=== PATIENT | female | born 1995 | race Caucasian/White ===

== ENCOUNTER 2023-01-01 13:10 | Emergency (ER) | payer BC ==
--- OUTSIDE RECORDS SUMMARY | 2023-01-01 13:13 | XMS REPORT | Continuity of Care Document ---
:1995 Author Organization [facility] t Address [address] [facility] [address] [place] [address] Care Team Providers Name Role Phone CAROLE ORDONEZ Primary Care Physician Unavailable SUE TORRES Attending Clinician Unavailable Sue Blank Attending Clinician Unknown, Attending Attending Clinician Unavailable Doctor Unassigned, [place] Attending Clinician Unavailable Lab, Adc Fam Pob I Attending Clinician Unavailable Pia Ferguson Attending Clinician Payers Payer Name Policy Type Policy Number Effective Expiration Source Date Date [facility] [id number] 2022 00:00:00 [facility] [id number] 2020 [id number] 00:00:[address] Branch Problems This patient has no known problems. Allergies, Adverse Reactions, Alerts Allergy Allergy Status Severity Reaction(s) Onset Inactive Treating Comm ents Source Name Type Date Date Clinician NO KNOWN Drug Active Univers ALLERGIE Class ity of [facility] Medical [place] Social History Social Habit Start Date Stop Date Quantity Comments Source Exposure to 2022-12-08 2022-12-18 Not sure [facility] SARS-CoV-2 (event) 00:00:00 18:49:00 Medica l Branch Sex Assigned At [birth year] [facility] [place] 00:00:00 00:00:00 Medical Branch Smoking Status Start Date Stop Date Source Tobacco smoking consumption Univ [facility] unknown Branch Medications Ordered Filled Start Stop Current Ordering Indication Dosage Frequency Signature Comments Components Source Medication Medication Date Date Medication? Clinician (SIG) Name Name levocetiriz Yes [id number] 5mg Take 1 Univers ine 5 mg 5-12 tablet by ity of tablet 00:00: mouth [place] 00 every Medical evening. Branch benzocaine- Yes [id number] 1{lozen Take 1 Univers menthoL 5-12 ge} Lozenge by ity of (CEPACOL 00:00: mouth [place] SORE 00 every 4 Medical THROAT, (four) Branch NIYAH-MEN,) hours as lozenge needed for Sore throat. dexAMETHaso 2022- Yes [id number] 12mg Take 3 Univers ne 4 mg 5-12 05-13 tablets by ity o f tablet 00:00: 04:59 [place] now for 1 Medical dose. Branch Vital Signs Vital Name Observation Time Observation Value Comments Source Systolic blood 2022-12-18 23:57:00 117 [facility] Diastolic blood 2022-12-18 23:57:00 76 mm[Hg] [facility] Heart rate 2022-12-18 23:57:00 101 /min [facility] Body temperature 2022-12-18 23:57:[address] [facility] Respiratory rate 2022-12-18 23:57:00 16 /min [facility] Body height 2022-12-18 23:57:00 160 cm [facility] Body weight 2022-12-18 23:57:00 69.673 kg [facility] BMI 2022-12-18 23:57:00 27.21 kg/m2 [facility] Oxygen saturation in 2022-12-18 23:57:00 99 /min [facility] Arterial blood by [facility] Pulse oximetry Branch Procedures Procedure Date / Time Performed Performing Clinician Sourtamara e POCT MOLECULAR STREP 2022-12-18 23:56:00 Unknown, Attending [facility] ASSIGNMENT OF BENEFITS 2022-12-18 23:50:01 Doctor Unassigned, No [facility] PATIENT FINANCIAL 2022-11-16 13:01:52 Doctor Unassigned, No [facility] Branch Encounters Start End Encounter Admission Attending Care Care Encounter Source Date/Time Date/Time Type Type Clinicians Facility Department ID 2022-12-18 2022-12-18 Outpatient R MEL[facility]SA [facility] [id number] Univers 18:40:00 20:10:11 SUE ity o f [facility] [place] [facility] 2022-12-18 2022-12-18 Urgent Sue Torres [facility] 1.2.840 .114 [id number] Univers 18:40:00 19:00:00 Care Unknown, Attending HEALTH [id number] ity of [place] [id number] Abdiaziz as YOUSUF?BLEA [id number] Fl dical JEANNEEY [address] MEDICAL OFFICE BUILDING 2022-12-18 2022-12-18 Orders Doctor NASIM [id number] Univers 00:00:00 00:00:00 Only Unassigned, PABLO [id number] ity of [place] [facility] [id number] Abdiaziz as [phone] [address] 2022-11-16 2022-11-16 Orders Doctor NASIM [id number] Univers 00:00:00 00:00:00 Only Unassigned, PABLO [id number] ity of [place] [facility] [id number] Abdiaziz as [phone] [address] 2020-02-27 2020-02-27 Laboratory Lab, Adc Fam Pob I [facility] 1.2. 840.114 [id number] Univers 08:20:00 08:40:00 Only Anene, [facility] [id number] ity of [place] [id number] Abdiaziz as Professio [phone] Fl dical nal [address] [place] [address] One Results Test Description Test Time Test Comments Results Result Comments Source POCT MOLECULAR STREP 2022-12-19 00:03:34 Test Item Value Reference Range Interpretation Comme nts POCT Molecular Strep (test code = 52757-4) Negative Negative Lab Interpretation (test code = 84656-9) Normal [facility]
[2023-01-01] MEDS ORDERED: dexAMETHasone 10 MG/ML VIAL ONE (13:41)
--- NOTE | 2023-01-01 14:05 | EDPHYS ---
Physician Documentation [facility] Name: Bianka Ferguson Age: 27 yrs Sex: Female : 1995 Arrival Date: 01/01/2023 Time: 13:10 Bed 13 Private MD: ED Physician Sly Mandujano HPI: 01/01 13:25 This 27 yrs old Female presents to ER via Ambulatory with complaints of Sore Throat, jmm Difficulty Swallowing. 13:25 The patient presents with sore throat. Onset: The symptoms/episode began/occurred jmm gradually. Is a 27-year-old female with no chronic medical conditions presents emerged part with complaints of sore throat, body aches beginning 2 days ago. Patient is concerned she may have strep throat. Denies vomiting. Denies shortness of breath.. 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 - Social history:: Smoking status: Patient denies any tobacco usage or history of. ROS: 13:25 Constitutional: Positive for body aches. jmm 13:25 ENT: Positive for sore throat. 13:25 All other systems are negative. Exam: 13:25 Constitutional: This is a well developed, well nourished patient who is awake, alert, jmm and in no acute distress. Head/Face: atraumatic. Eyes: EOMI, no conjunctival erythema appreciated 13:25 Neck: Trachea midline, Supple Chest/axilla: Normal chest wall appearance and motion. Cardiovascular: Regular rate and rhythm. No edema appreciated Respiratory: Normal respirations, no respiratory distress appreciated Abdomen/GI: Non distended Back: Normal ROM Skin: General appearance color normal MS/ Extremity: Moves all extremities, no obvious deformities appreciated, no edema noted to the lower extremities Neuro: Awake and alert Psych: Behavior is normal, Mood is normal, Patient is cooperative and pleasant 13:25 ENT: Posterior pharynx: erythema, that is moderate. Vital Signs: 13:22 BP 137 / 85; Pulse 92; Resp 16; Temp 98; Pulse Ox 100% ; bp 14:13 BP 128 / 74; Pulse 79; Resp 16; Pulse Ox 99% on R/A; mb9 MDM: 13:25 Patient medically screened. [facility] 14:14 Differential diagnosis: Strep pharyngitis, pharyngitis. [facility] 14:14 Data reviewed: vital signs, nurses notes. I considered the following discharge jm prescriptions or medication management in the emergency department Medications were administered in the Emergency Department. See MAR. Counseling: I had a detailed discussion with the patient and/or guardian regarding: the historical points, exam findings, and any diagnostic results supporting the discharge/admit diagnosis, lab results, the need for outpatient follow up, to return to the emergency department if symptoms worsen or persist or if there are any questions or concerns that arise at home. 01/01 13:25 Order name: Strep kylie Administered Medications: 13:37 Drug: Dexamethasone IM 10 mg Route: IM; Site: right gluteus; 9 13:54 Follow up: Response: No adverse reaction mb9 Disposition Summary: 01/01/23 14:04 Discharge Ordered Location: Home [facility] Condition: Stable [facility] Diagnosis - Acute pharyngitis, unspecified [facility] Followup: [facility] - With: Private Physician - When: 2 - 3 days - Reason: Recheck today's complaints, Continuance of care, Re-evaluation by your physician Discharge Instructions: - Pharyngitis [facility] - Discharge Summary Sheet mb9 Forms: - Medication Reconciliation Form [facility] - Thank You Letter [facility] - Antibiotic Education [facility] - Prescription Opioid Use [facility] - Work release form mb9 Prescriptions: - Amoxicillin 400 mg/5 mL Oral Suspension for Reconstitution - take 10 milliliter by ORAL route every 12 hours for 10 days; 200 milliliter; [facility] Refills: 0, Product Selection Permitted Signatures: Dispatcher [employer] EDCharles Hughes PA PA jmm Peltier, Brian RN RN Sara Muniz RN RN mb9
--- NOTE | 2023-01-01 14:05 | ER ---
Nurse's Notes [facility] Name: Bianka Ferguson Age: 27 yrs Sex: Female : 1995 Arrival Date: 01/01/2023 Time: 13:10 Bed 13 Private MD: Diagnosis: Acute pharyngitis, unspecified Presentation: 01/01 13:22 Chief complaint: Patient states: SORE THROAT AND LEFT EAR PAIN x2 DAYS. Coronavirus bp screen: At this time, the client does not indicate any symptoms associated with coronavirus-19. Ebola Screen: No symptoms or risks identified at this time. Initial Sepsis Screen: Does the patient meet any 2 criteria? No. Patient's initial sepsis screen is negative. Does the patient have a suspected source of infection? No. Patient's initial sepsis screen is negative. Risk Assessment: Do you want to hurt yourself or someone else? Patient reports no desire to harm self or others. Note FREQUENT H/O STREP. Onset of symptoms is unknown. 13:22 Method Of Arrival: Ambulatory bp 13:22 Acuity: RUBINA 4 bp Triage Assessment: 13:23 General: Appears uncomfortable, Behavior is calm, cooperative, appropriate for age. bp Pain: Complains of pain in left ear and neck. EENT: Reports pain when swallowing. Neuro: No deficits noted. Cardiovascular: No deficits noted. Respiratory: No deficits noted. GI: No signs and/or symptoms were reported involving the gastrointestinal system. : No signs and/or symptoms were reported regarding the genitourinary system. Derm: No deficits noted. Musculoskeletal: No deficits noted. 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 - Social history:: Smoking status: Patient denies any tobacco usage or history of. Screenin:26 [facility] ED Fall Risk Assessment (Adult) History of falling in the last 3 months, bp including since admission No falls in past 3 months (0 pts). Abuse screen: Denies threats or abuse. Denies injuries from another. Nutritional screening: No deficits noted. Tuberculosis screening: No symptoms or risk factors identified. Assessment: 13:25 General: SEE TRIAGE NOTE. Respiratory: Airway is patent Respiratory effort is even, bp unlabored, Breath sounds are clear. EENT: Throat is reddened has enlarged tonsils. Vital Signs: 13:22 BP 137 / 85; Pulse 92; Resp 16; Temp 98; Pulse Ox 100% ; bp 14:13 BP 128 / 74; Pulse 79; Resp 16; Pulse Ox 99% on R/A; mb9 ED Course: 13:11 Patient arrived in ED. am2 13:11 Charles Gaxiola PA is PHCP. jmm 13:12 Sly Mandujano MD is Attending Physician. jmm 13:23 Triage completed. bp 13:23 Arm band placed on. bp 13:26 Patient has correct armband on for positive identification. Call light in reach. bp 13:30 Sara Sterling, RN is Primary Nurse. mb9 13:31 Strep Sent. mb9 13:31 No provider procedures requiring assistance completed. Patient did not have IV access mb9 during this emergency room visit. Administered Medications: 13:37 Drug: Dexamethasone IM 10 mg Route: IM; Site: right gluteus; mb9 13:54 Follow up: Response: No adverse reaction mb9 Medication: 13:31 VIS not applicable for this client. mb9 Outcome: 14:04 Discharge ordered by . [facility] 14:14 Discharged to home ambulatory. mb9 14:14 Condition: stable 14:14 Discharge instructions given to patient, Instructed on discharge instructions, follow up and referral plans. Demonstrated understanding of instructions, follow-up care, medications, Prescriptions given X 1. 14:14 Patient left the ED. mb9 Signatures: Charles Gaxiola PA PA jmm Moreno, Amanda am2 Rob Handy RN RN bp Sara Sterling, RN RN mb9
== END 2023-01-01 14:14 | disposition home or self-care (01) ==
LOC: ER 13:10
DX: J02.9 Acute pharyngitis, unspecified (principal); Z91.02 Food additives allergy status
CPT/HCPCS: 87070; 87081; 96372; 99284; J1100

== ENCOUNTER 2023-05-19 07:20 | Emergency (ER) | payer BC ==
--- OUTSIDE RECORDS SUMMARY | 2023-05-19 07:22 | XMS REPORT | Continuity of Care Document ---
:1995 Author Organization [facility] [place] [facility] t Address [address] [facility] [address] [place] [address] Care Team Providers Name Role Phone CAROLE ORDONEZ Primary Care Physician Unavailable [email or web address] Attending Clinician Unavailable SUE TORRES Attending Clinician Unavailable Sue Blank Attending Clinician Unknown, Attending Attending Clinician Unavailable Doctor Unassigned, [place] Attending Clinician Unavailable Lab, Adc Fam Pob I Attending Clinician Unavailable Pia Ferguson Attending Clinician [email or web address] Admitting Clinician Unavailable Payers Payer Name Policy Type Policy Number Effective Expiration Source Date Date [facility]: (EPO) [id number] 2022 00:00:00 [facility] [id number] 2022 00:00:00 [employer] [id number] 2020 [id number] 00:00:00 [address] Branch Problems This patient has no known problems. Allergies, Adverse Reactions, Alerts Allergy Allergy Status Severity Reaction(s) Onset Inactive Treating Comm ents Source Name Type Date Date Clinician NO KNOWN Drug Active Univers ALLERGIE Class ity [facility] Social History Social Habit Start Date Stop Date Quantity Comments Source Exposure to 2022-12-08 2022-12-18 Not sure [facility] SARS-CoV-2 (event) 00:00:00 18:49:00 Medica l Branch Sex Assigned At [birth year] [facility] [place] 00:00:00 00:00:00 Medical Branch Smoking Status Start Date Stop Date Source Tobacco smoking consumption [facility] unknown Branch Medications Ordered Filled Start Stop Current Ordering Indication Dosage Frequency Signature Comments Components Source Medication Medication Date Date Medication? Clinician (SIG) Name Name levocetiriz Yes [id number] 5mg Take 1 Univers ine 5 mg 5-12 tablet by ity of tablet 00:00: mouth [place] 00 every Medical evening. Branch benzocaine- Yes [id number] 1{lozen Take 1 Univers menthoL 5-12 ge} Lozenge by ity of (CEPACOL 00:00: mouth [place] SORE 00 every 4 Medical THROAT, (four) Branch NIYAH-MEN,) hours as lozenge needed for Sore throat. dexAMETHaso 2022- No [id number] 12mg Take 3 Univers ne 4 mg 5-12 05-13 tablets by ity o f tablet 00:00: 04:59 [place] :[place] now for 1 Medical dose. Branch Vital Signs Vital Name Observation Time Observation Value Comments Source Systolic blood 2022-12-18 23:57:00 117 mm[Hg] Univer [facility] Diastolic blood 2022-12-18 23:57:00 76 mm[Hg] [facility] Heart rate 2022-12-18 23:57:00 101 /min [facility] Body temperature 2022-12-18 23:57:00 37.28 [facility] Respiratory rate 2022-12-18 23:57:00 16 /min [facility] Body height 2022-12-18 23:57:00 160 cm [facility] Body weight 2022-12-18 23:57:00 69.673 kg [facility] BMI 2022-12-18 23:57:00 27.21 kg/m2 [facility] Oxygen saturation in 2022-12-18 23:57:00 99 /min [facility] Arterial blood by [facility] Pulse oximetry Branch Procedures Procedure Date / Time Performed Performing Clinician Sourc e POCT MOLECULAR STREP 2022-12-18 23:56:00 Unknown, Attending [facility] ASSIGNMENT OF BENEFITS 2022-12-18 23:50:01 Doctor Unassigned, No [facility] Name [facility] PATIENT FINANCIAL 2022-11-16 13:01:52 Doctor Unassigned, No [facility] POLICY [facility] Encounters Start End Encounter Admission Attending Care Care Encounter Source Date/Time Date/Time Type Type Clinicians Facility Department ID 2023-04-12 2023-04-12 Outpatient SFA SFA [id number] 15:13:02 15:13:02 [id number] Amanuel 2023-02-19 2023-02-19 Outpatient GC_GCBZW_Ka PRIV PRIV [id number] [facility] 00:00:00 00:00:00 diyala_S [id number] Medic al 2023-02-17 2023-02-17 Outpatient [email or web address] PRIV PRIV [id number] [facility] 00:00:00 00:00:00 diyala_S [id number] Medic fl 2022-12-18 2022-12-18 Outpatient R MELISSA [facility] [id number] Univers 18:40:00 20:10:11 SUE jeffrey [facility] 2022-12-18 2022-12-18 Urgent Sue Torres [facility] 1.2.840 .114 [id number] Univers 18:40:00 19:00:00 Care Unknown, Attending [facility] [id number] ity of [place] [id number] Abdiaziz as YOUSUF?BLEA [id number] [address] MEDICAL OFFICE BUILDING 2022-12-18 2022-12-18 Orders Doctor ROUSE 1.2.840.114 [id number] Univers 00:00:00 00:00:00 Only Unassigned, PABLO [id number] ity of [place] [facility] [id number] Abdiaziz as [id number] [address] 2022-11-16 2022-11-16 Orders Doctor ROUSE [id number] Univers 00:00:00 00:00:00 Only Unassigned, PABLO [id number] ity of [place] [facility] [id number] Abdiaziz as [phone] [address] 2020-02-27 2020-02-27 Laboratory Lab, Adc [facility] Pob I [facility] 1.2. 840.114 [id number] [facility] 08:20:00 08:40:00 Only [facility] [id number] ity of [place] [id number] Abdiaziz as Gertrude [phone] [address] Office Building One Results Test Description Test Time Test Comments Results Result Comments Source POCT MOLECULAR STREP 2022-12-19 00:03:34 Test Item Value Reference Range Interpretation Comme nts POCT Molecular Strep (test code = 09193-2) Negative Negative Lab Interpretation (test code = 40897-0) Normal [facility]
--- NOTE | 2023-05-19 08:31 | EDPHYS ---
Physician Documentation [facility] Name: Bianka Ferguson Age: 27 yrs Sex: Female : 1995 Arrival Date: 05/19/2023 Time: 07:20 Bed 6 Private MD: ED Physician Chuckie Freitas HPI: 05/19 07:32 This 27 yrs old Female presents to ER via Ambulatory with complaints of Flu Symptoms, 9 ms3 weeks . 07:32 27-year-old female, -0-1-2, LMP 03/22/2023 with no past medical history presents ms3 for chills, cough, runny nose, headache, stuffy ears, nausea that began on Wednesday. Patient states her discomfort is a 6/10. Patient denies any alleviating or inciting factors. 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 - Social history:: Smoking status: Patient denies any tobacco usage or history of. ROS: 07:32 Constitutional: Negative for fever, and chills. Neck: Negative for injury, pain, and ms3 swelling, Cardiovascular: Negative for chest pain, and palpitations. Respiratory: Negative for shortness of breath, cough, wheezing, and pleuritic chest pain, Abdomen/GI: Negative for abdominal pain, nausea, vomiting, diarrhea, and constipation, MS/Extremity: Negative for injury and deformity, 07:32 ENT: Positive for nasal discharge, rhinorrhea, 07:32 Respiratory: Positive for cough, 07:32 All other systems are negative, Exam: 07:32 Constitutional: This is a well developed, well nourished patient who is awake, alert, ms3 and in no acute distress. Head/Face: Normocephalic, atraumatic. Neck: Trachea midline, no cervical lymphadenopathy. Supple, full range of motion without nuchal rigidity, or vertebral point tenderness. No Meningismus. Chest/axilla: Normal chest wall appearance and motion. Nontender with no deformity. Cardiovascular: Regular rate and rhythm with a normal S1 and S2. No gallops, murmurs, or rubs. Normal PMI, no JVD. No pulse deficits. Respiratory: Lungs have equal breath sounds bilaterally, clear to auscultation and percussion. No rales, rhonchi or wheezes noted. No increased work of breathing, no retractions or nasal flaring. Abdomen/GI: Soft, non-tender, with normal bowel sounds. No distension or tympany. No guarding or rebound. No evidence of tenderness throughout. Skin: Warm, dry with normal turgor. Normal color with no rashes, no lesions, and no evidence of cellulitis. MS/ Extremity: Pulses equal, no cyanosis. Neurovascular intact. Full, normal range of motion. Vital Signs: 07:27 BP 114 / 76; Pulse 89; Resp 18; Temp 98.2; Pulse Ox 98% ; Weight 70.31 kg; Height 5 ft. ll1 3 in. ; Pain 6/10; 07:27 Body Mass Index 27.46 (70.31 kg, 160.02 cm) ll1 07:27 Pain Scale: Adult ll1 MDM: 07:32 Differential Diagnosis: Bronchitis Influenza Upper Respiratory Infection Other COVID. ms3 07:35 Patient medically screened. ms3 08:30 Data reviewed: vital signs, nurses notes, lab test result(s), and as a result, I will ms3 discharge patient. Counseling: I had a detailed discussion with the patient and/or guardian regarding the historical points, exam findings, and any diagnostic results supporting the discharge/admit diagnosis, lab results, the need for outpatient follow up, to return to the emergency department if symptoms worsen or persist or if there are any questions or concerns that arise at home. Special discussion: I discussed with the patient/guardian in detail that at this point there is no indication for admission to the hospital. It is understood, however, that if the symptoms persist or worsen the patient needs to return immediately for re-evaluation. ED course: Discussed labs, physical exam findings with patient. Patient to follow-up with her primary care physician in 2 to 3 days. Patient understands and agrees with plan. All questions were answered. Return precautions discussed include worsening symptoms, or any other concerns. 05/19 07:31 Order name: Flu; Complete Time: 08:27 ms3 05/19 07:31 Order name: COVID-19 SARS RT PCR; Complete Time: 08:27 ms3 05/19 07:31 Order name: PO challenge; Complete Time: 07:44 ms3 Administered Medications: No medications were administered Disposition Summary: 05/19/23 08:30 Discharge Ordered Notes: Location: Home ms3 Condition: Stable ms3 Diagnosis - Cough ms3 - Nasal congestion ms3 - Nausea ms3 - Myalgia ms3 Followup: ms3 - With: Private Physician - When: 2 - 3 days - Reason: Recheck today's complaints Discharge Instructions: - Discharge Summary Sheet ms3 - Upper Respiratory Infection, Adult, [id number] ms3 Forms: - Work release form ll1 - Medication Reconciliation Form ms3 - Thank You Letter ms3 - Antibiotic Education ms3 - Prescription Opioid Use ms3 - Patient Portal Instructions ms3 - Leadership Thank You Letter ms3 Signatures: Dispatcher [employer] Duy Hernandez, RN RN ll1 Chuckie Freitas DO DO ms3
--- NOTE | 2023-05-19 08:31 | ER ---
Nurse's Notes [facility] Name: Bianka Ferguson Age: 27 yrs Sex: Female : 1995 Arrival Date: 05/19/2023 Time: 07:20 Bed 6 Private MD: Diagnosis: Cough;Nasal congestion;Nausea;Myalgia Presentation: 05/19 07:27 Chief complaint: Patient states: Chills, cough, runny nose, PATRICIA, stuffy ears, nausea ll1 since Wednesday. Fever 100.0. 9 weeks . Coronavirus screen: Vaccine status: Patient reports receiving the 2nd dose of the covid vaccine. Client denies travel out of the [place] in the last 14 days. congestion, cough unrelated to allergies, fever, headache, nausea, Client presents with at least one sign or symptom that may indicate coronavirus-19. Standard/surgical mask placed on the client. Ebola Screen: Patient denies travel to an Ebola-affected area in the 21 days before illness onset. Initial Sepsis Screen: Does the patient meet any 2 criteria? No. Patient's initial sepsis screen is negative. Does the patient have a suspected source of infection? Yes: Dysuria/Frequency/Urgency/UTI. Risk Assessment: Do you want to hurt yourself or someone else? Patient reports no desire to harm self or others. Onset of symptoms was May 17, 2023. 07:27 Method Of Arrival: Ambulatory ll1 07:27 Acuity: RUBINA 4 ll1 Triage Assessment: 07:29 General: Appears in no apparent distress. Behavior is calm, cooperative, appropriate ll1 for age. Pain: Complains of pain in head Pain currently is 6 out of 10 on a pain scale. Quality of pain is described as aching, Pain began 2-3 days ago. EENT: Reports nasal discharge. Neuro: Reports headache. Respiratory: Reports cough that is. GI: Reports nausea. 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 - Social history:: Smoking status: Patient denies any tobacco usage or history of. Screenin:46 [facility] ED Fall Risk Assessment (Adult) Score/Fall Risk Level 0 - 2 = Low Risk. Abuse iw screen: Denies threats or abuse. Nutritional screening: No deficits noted. Tuberculosis screening: No symptoms or risk factors identified. Assessment: 07:46 General: Appears in no apparent distress. comfortable, Behavior is calm, cooperative. iw Neuro: Level of Consciousness is awake, alert, obeys commands, Oriented to person, place, time, situation, Moves all extremities. Full function. Cardiovascular: Patient's skin is warm and dry. Respiratory: Respiratory effort is even, unlabored. Derm: Skin is intact, is healthy with good turgor. 08:40 Reassessment: Patient appears in no apparent distress at this time. Patient is alert, iw oriented x 3, equal unlabored respirations, skin warm/dry/pink. Vital Signs: 07:27 BP 114 / 76; Pulse 89; Resp 18; Temp 98.2; Pulse Ox 98% ; Weight 70.31 kg; Height 5 ft. ll1 3 in. ; Pain 6/10; 07:27 Body Mass Index 27.46 (70.31 kg, 160.02 cm) ll1 07:27 Pain Scale: Adult ll1 ED Course: 07:21 Patient arrived in ED. rg4 07:24 Nurys Young, JOSE MANUEL is Primary Nurse. iw 07:25 Chuckie Freitas DO is Attending Physician. ms3 07:27 Arm band placed on Patient placed in an exam room, on a stretcher. ll1 07:29 Triage completed. ll1 07:44 COVID-19 SARS RT PCR Sent. iw 07:44 Flu Sent. iw 07:46 Patient has correct armband on for positive identification. Call light in reach. iw Provided Education on: flu/covid swabs. 07:48 Provided Education on: . iw 08:40 No provider procedures requiring assistance completed. Patient did not have IV access iw during this emergency room visit. Administered Medications: No medications were administered Medication: 07:46 VIS not applicable for this client. iw Outcome: 08:30 Discharge ordered by . ms3 08:40 Discharged to home ambulatory, iw 08:40 Condition: good 08:40 Discharge instructions given to patient, Instructed on discharge instructions, follow up and referral plans. Demonstrated understanding of instructions, follow-up care, 08:41 Patient left the ED. iw Signatures: Nurys Young, RN RN timoteo Funes Ashley rg4 Duy Dow, RN RN ll1 Chuckie Freitas, DO LEDEZMA ms3
[2023-05-19 08:50] VITALS: BP 114/76; TEMP 98.2; O2SAT 98
== END 2023-05-19 08:41 | disposition home or self-care (01) ==
LOC: ER 07:20
DX: O26.891 Other specified pregnancy related conditions, first trimester (principal); R05.9 Cough, unspecified; R09.81 Nasal congestion; M79.10 Myalgia, unspecified site; R11.0 Nausea; Z20.822 Contact with and (suspected) exposure to COVID-19; Z3A.01 Less than 8 weeks gestation of pregnancy; Z91.048 Other nonmedicinal substance allergy status
CPT/HCPCS: 87635; 87804

== ENCOUNTER → 2023-08-29 | Emergency (ER) | payer BC ==
--- NOTE | 2023-08-29 18:03 | ER ---
Nurse's Notes [facility] Name: Bianka Ferguson Age: 28 yrs Sex: Female : 1995 Arrival Date: 08/29/2023 Time: 16:51 Bed 5 Private MD: Diagnosis: Acute upper respiratory infection, unspecified Presentation: 08/29 17:06 Chief complaint: Patient states: sore throat, bilateral ears hurt, productive cough, ko1 congestion started Wednesday. 25 weeks . Coronavirus screen: congestion, cough unrelated to allergies, headache, runny nose, sore throat. Ebola Screen: No symptoms or risks identified at this time. Initial Sepsis Screen: Does the patient meet any 2 criteria? No. Patient's initial sepsis screen is negative. Does the patient have a suspected source of infection? No. Patient's initial sepsis screen is negative. Risk Assessment: Do you want to hurt yourself or someone else? Patient reports no desire to harm self or others. Onset of symptoms is unknown. 17:06 Method Of Arrival: Ambulatory ko1 17:06 Acuity: RUBINA 4 ko1 Triage Assessment: 17:08 General: Appears in no apparent distress. Behavior is calm, cooperative, appropriate ko1 for age. Pain: Complains of pain in right ear and left ear, throat. EENT: Reports difficulty swallowing nasal congestion pain in left ear and right ear when swallowing. 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 - Social history:: Smoking status: Patient denies any tobacco usage or history of. Screenin:17 [facility] ED Fall Risk Assessment (Adult) Score/Fall Risk Level 0 - 2 = Low Risk. Abuse iw screen: Denies threats or abuse. Denies injuries from another. Nutritional screening: No deficits noted. Tuberculosis screening: No symptoms or risk factors identified. Assessment: 18:00 General: Appears in no apparent distress. Behavior is calm, cooperative. Pain: iw Complains of pain in right ear and left ear. Neuro: Level of Consciousness is awake, alert, obeys commands, Oriented to person, place, time, situation, Moves all extremities. Full function. Cardiovascular: Patient's skin is warm and dry. Respiratory: Airway Respiratory effort is even, unlabored, Breath sounds are clear bilaterally. EENT: Throat is reddened. Derm: Skin is intact, is healthy with good turgor. Musculoskeletal: Range of motion: intact in all extremities. Vital Signs: 17:06 BP 135 / 85; Pulse 103; Resp 18; Temp 97.3; Pulse Ox 100% ; ko1 ED Course: 16:56 Patient arrived in ED. mg5 16:57 Yelena Palafox FNP-C is [facility]. kb 16:57 Ananda Mcmahan MD is Attending Physician. kb 17:08 Triage completed. ko1 17:08 Arm band placed on right wrist. Patient placed in an exam room, on a stretcher, on ko1 pulse oximetry, Patient notified of wait time. 17:11 Nurys Young, RN is Primary Nurse. iw 18:00 Patient has correct armband on for positive identification. iw 18:17 No provider procedures requiring assistance completed. Patient did not have IV access iw during this emergency room visit. Administered Medications: No medications were administered Medication: 18:00 VIS not applicable for this client. iw Outcome: 18:02 Discharge ordered by MD. kb 18:17 Discharged to home ambulatory, iw 18:17 Condition: good 18:17 Discharge instructions given to patient, Instructed on discharge instructions, follow up and referral plans. Demonstrated understanding of instructions, follow-up care, 18:18 Patient left the ED. iw Signatures: Yelena Palafox FNP-C FNP-Nurys Crowley RN JOSE MANUEL iw Brigette Colindres RN RN ko1 Crystal Holloway mg5
--- NOTE | 2023-08-29 18:03 | EDPHYS ---
Physician Documentation [facility] Name: Bianka Ferguson Age: 28 yrs Sex: Female : 1995 Arrival Date: 08/29/2023 Time: 16:51 Bed 5 Private MD: ED Physician Ananda Mcmahan HPI: 08/29 17:11 This 28 yrs old Female presents to ER via Ambulatory with complaints of Sore Throat, kb Cough, Ear Pain, Headache. 17:11 Pt is a 28 year old female who presents with cough, congestion, sore throat, hoarse kb voice and ear pain that started 5 days ago. . 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 - Social history:: Smoking status: Patient denies any tobacco usage or history of. ROS: 17:11 Constitutional: Negative for fever, chills, and weight loss, kb 17:11 ENT: Positive for ear pain, sinus congestion, sore throat, 17:11 Respiratory: Positive for cough, 17:11 All other systems are negative, Exam: 17:11 Constitutional: This is a well developed, well nourished patient who is awake, alert, kb and in no acute distress. Head/Face: Normocephalic, atraumatic. ENT: Moist Mucous membranes Cardiovascular: Regular rate Respiratory: Respirations even and unlabored. No increased work of breathing. Talking in full sentences Skin: Warm, dry with normal turgor. Normal color. MS/ Extremity: Pulses equal, no cyanosis. Neurovascular intact. Full, normal range of motion. Neuro: Awake and alert, GCS 15, oriented to person, place, time, and situation. Moves all extremities. Normal gait. 17:11 ENT: External ear(s): are unremarkable, Ear canal(s): are normal, TM's: are normal, Posterior pharynx: Tonsils: are normal in appearance, Uvula: normal, swelling, is not appreciated, erythema, that is mild, Vital Signs: 17:06 BP 135 / 85; Pulse 103; Resp 18; Temp 97.3; Pulse Ox 100% ; ko1 MDM: 16:57 Patient medically screened. kb 17:12 Differential diagnosis: flu, covid, uri, pharyngitis, strep. Data reviewed: vital kb signs, nurses notes. 17:12 Test considered but Not performed: X-ray: chest x-ray considered, but lungs are clear kb bilaterally, resp even and unlabored, afebrile and oxygen saturation 100% on room air. 18:01 Counseling: I had a detailed discussion with the patient and/or guardian regarding the historical points, exam findings, and any diagnostic results supporting the discharge/admit diagnosis, lab results, the need for outpatient follow up, a family practitioner, to return to the emergency department if symptoms worsen or persist or if there are any questions or concerns that arise at home. 18:02 I considered the following discharge prescriptions or medication management in the emergency department I discussed and recommended Over The Counter medications, Antibiotics: At this time antibiotics are not recommended, Antivirals: At this time, antivirals are not recommended. 08/29 17:11 Order name: Flu; Complete Time: 17:54 kb 08/29 17:11 Order name: Strep; Complete Time: 17:54 kb 08/29 17:11 Order name: COVID-19 SARS RT PCR; Complete Time: 18:01 kb 08/29 17:56 Order name: Throat Culture EDMS Administered Medications: No medications were administered Disposition: 18:34 Co-signature as Attending Physician, Ananda Mcmahan MD I reviewed the patient's care rn provided by the Advanced Practice Provider and agree with the diagnosis and treatment plan. Disposition Summary: 08/29/23 18:02 Discharge Ordered Notes: Location: Home Condition: Stable Diagnosis - Acute upper respiratory infection, unspecified kb Followup: kb - With: Emergency Department - When: As needed - Reason: Worsening of condition Followup: kb - With: Private Physician - When: 2 - 3 days - Reason: Recheck today's complaints, Continuance of care, Re-evaluation by your physician Discharge Instructions: - Discharge Summary Sheet kb - Upper Respiratory Infection, Adult, [id number] kb - Viral Respiratory Infection, [id number] kb Forms: - Medication Reconciliation Form kb - Thank You Letter kb - Antibiotic Education kb - Prescription Opioid Use kb - Patient Portal Instructions kb - Leadership Thank You Letter kb Signatures: Dispatcher [employer] EDMS Yelena Palafox FNP-C FNP-Ckb Nieto, Ananda, MD MD rn Brigette Colindres, JOSE MANUEL RN ko1
[2023-08-29 20:22] VITALS: BP 135/85; TEMP 97.3; O2SAT 100
== END ==
LOC: ER 16:51
DX: J06.9 Acute upper respiratory infection, unspecified (principal); Z11.52 Encounter for screening for COVID-19; Z91.02 Food additives allergy status
CPT/HCPCS: 87070; 87081; 87635; 87804; 99283

== ENCOUNTER 2023-11-06 07:23 | Emergency (ER) | payer BC ==
--- NOTE | 2023-11-06 07:40 | ER ---
Nurse's Notes [facility] Name: Bianka Ferguson Age: 28 yrs Sex: Female : 1995 Arrival Date: 11/06/2023 Time: 07:23 Bed 16 Private MD: Diagnosis: Pain in right wrist Presentation: 11/05 07:36 Chief complaint: Patient states: 34 WK , R WRIST PAIN 2/2 EDEMA. Coronavirus bp screen: At this time, the client does not indicate any symptoms associated with coronavirus-19. Ebola Screen: No symptoms or risks identified at this time. Initial Sepsis Screen: Does the patient meet any 2 criteria? HR > 90 bpm. No. Patient's initial sepsis screen is negative. Does the patient have a suspected source of infection? No. Patient's initial sepsis screen is negative. Risk Assessment: Do you want to hurt yourself or someone else? Patient reports no desire to harm self or others. Onset of symptoms is unknown. 07:36 Method Of Arrival: Ambulatory bp 07:36 Acuity: RUBINA 4 bp Triage Assessment: 07:36 General: Appears in no apparent distress. uncomfortable, Behavior is cooperative, bp appropriate for age, anxious. Pain: Complains of pain in right wrist. Historical: - Allergies: 07:29 GRAPE FLAVORING; ll1 - PMHx: 07:43 None; ll1 - PSHx: 07:43 None; ll1 - Immunization history:: Adult Immunizations up to date. - Social history:: Smoking status: Patient denies any tobacco usage or history of. Screenin:38 [facility] ED Fall Risk Assessment (Adult) History of falling in the last 3 months, bp including since admission No falls in past 3 months (0 pts) Confusion or Disorientation No (0 pts) Intoxicated or Sedated No (0 pts) Impaired Gait No (0 pts) Mobility Assist Device Used No (0 pt) Altered Elimination No (0 pt). [facility] ED Fall Risk Assessment (Adult) Score/Fall Risk Level 0 - 2 = Low Risk Oriented to surroundings. Abuse screen: Denies threats or abuse. Denies injuries from another. Nutritional screening: No deficits noted. Tuberculosis screening: No symptoms or risk factors identified. Assessment: 07:38 General: SEE TRIAGE NOTE. bp Vital Signs: 07:36 BP 129 / 77; Pulse 113; Resp 16; Temp 98; Pulse Ox 100% ; bp ED Course: 07:28 Patient arrived in ED. ra3 07:29 Chuckie Freitas DO is Attending Physician. ms3 07:29 Arm band placed on Patient placed in an exam room, on a stretcher. ll1 07:37 Triage completed. bp 07:38 Patient has correct armband on for positive identification. Bed in low position. Call bp light in reach. 07:43 Corrina Parks, RN is Primary Nurse. kc6 07:49 Patient maintains SpO2 saturation greater than 95% on room air. Velcro wrist splint kc6 applied to right wrist. 07:49 No provider procedures requiring assistance completed. Patient did not have IV access kc6 during this emergency room visit. Administered Medications: No medications were administered Medication: 07:38 VIS not applicable for this client. bp Outcome: 07:40 Discharge ordered by MD. ms3 07:49 Discharged to home ambulatory, kc6 07:49 Condition: good 07:49 Discharge instructions given to patient, Instructed on discharge instructions, follow up and referral plans. Demonstrated understanding of instructions, follow-up care, 07:51 Patient left the ED. kc6 Signatures: Rob Handy, RN RN bp Duy Dow RN RN ll1 Chuckie Freitas DO DO ms3 Corrina Parks, JOSE MANUEL RN kc Adamaris Mcneill ra3
--- NOTE | 2023-11-06 07:40 | EDPHYS ---
Physician Documentation [facility] Name: Bianka Ferguson Age: 28 yrs Sex: Female : 1995 Arrival Date: 11/06/2023 Time: 07:23 Bed 16 Private MD: ED Physician Chuckie Freitas HPI: 11/05 07:40 This 28 yrs old Female presents to ER via Ambulatory with complaints of Wrist Pain - ms3 swelling. 07:40 28-year-old female with past medical history of prediabetes presents to the emergency ms3 department for right wrist pain that is been ongoing for 2 weeks. Patient states pain is gradually getting worse. The pain is incited with movement and patient denies alleviating factors. The pain is described as shooting and is an 8/10 with movement.. Historical: - Allergies: 07:29 GRAPE FLAVORING; ll1 - PMHx: 07:43 None; ll1 - PSHx: 07:43 None; ll1 - Immunization history:: Adult Immunizations up to date. - Social history:: Smoking status: Patient denies any tobacco usage or history of. ROS: 07:40 Constitutional: Negative for fever, and chills. Cardiovascular: Negative for chest ms3 pain, and palpitations. Respiratory: Negative for shortness of breath, cough, wheezing, and pleuritic chest pain, Abdomen/GI: Negative for abdominal pain, nausea, vomiting, diarrhea, and constipation, 07:40 MS/extremity: Positive for pain, of the right wrist, Exam: 07:40 Hand exam: is negative for erythema, Exam is positive for swelling, tenderness, ms3 07:40 Constitutional: This is a well developed, well nourished patient who is awake, alert, and in no acute distress. Head/Face: Normocephalic, atraumatic. Neck: Trachea midline, no cervical lymphadenopathy. Supple, full range of motion without nuchal rigidity, or vertebral point tenderness. No Meningismus. Cardiovascular: Regular rate and rhythm with a normal S1 and S2. No gallops, murmurs, or rubs. Normal PMI, no JVD. No pulse deficits. Respiratory: Lungs have equal breath sounds bilaterally, clear to auscultation and percussion. No rales, rhonchi or wheezes noted. No increased work of breathing, no retractions or nasal flaring. Abdomen/GI: Soft, non-tender, with normal bowel sounds. No distension or tympany. No guarding or rebound. No evidence of tenderness throughout. Vital Signs: 07:36 BP 129 / 77; Pulse 113; Resp 16; Temp 98; Pulse Ox 100% ; bp MDM: 07:38 Patient medically screened. ms3 07:40 Differential diagnosis: carpal tunnel vs edema vs msk pain. Data reviewed: vital signs, ms3 nurses notes, and as a result, I will discharge patient. Counseling: I had a detailed discussion with the patient and/or guardian regarding the historical points, exam findings, and any diagnostic results supporting the discharge/admit diagnosis, the need for outpatient follow up, to return to the emergency department if symptoms worsen or persist or if there are any questions or concerns that arise at home. Special discussion: I discussed with the patient/guardian in detail that at this point there is no indication for admission to the hospital. It is understood, however, that if the symptoms persist or worsen the patient needs to return immediately for re-evaluation. ED course: Discussed physical exam findings with patient. Patient to follow-up with primary care physician in 2 to 3 days. Patient understands and agrees with plan. Discussed wearing wrist cock-up splint and keeping hand elevated above heart. Possibly carpal tunnel secondary to .. 11/05 07:39 Order name: Wrist Splint; Complete Time: 07:49 ms3 Administered Medications: No medications were administered Disposition Summary: 11/06/23 07:40 Discharge Ordered Notes: Location: Home ms3 Condition: Stable ms3 Diagnosis - Pain in right wrist ms3 Followup: ms3 - With: Private Physician - When: 2 - 3 days - Reason: Recheck today's complaints Discharge Instructions: - Discharge Summary Sheet ms3 - Joint Pain ms3 - How to Use Cold Therapy ms3 Forms: - Medication Reconciliation Form ms3 - Thank You Letter ms3 - Antibiotic Education ms3 - Prescription Opioid Use ms3 - Patient Portal Instructions ms3 - Leadership Thank You Letter ms3 Signatures: Rob Handy, RN RN bp Duy Dow RN RN ll1 Chuckie Freitas, DO ms3
[2023-11-06 08:18] VITALS: BP 129/77; TEMP 98; O2SAT 100
== END 2023-11-06 07:51 | disposition home or self-care (01) ==
LOC: ER 07:23
DX: M25.531 Pain in right wrist (principal); Z91.02 Food additives allergy status
CPT/HCPCS: 99284